=== PATIENT | female | born 1970 | race Two or more races ===

== ENCOUNTER 2024-01-10 08:06 | Outpatient (REF) | payer OTHER, SELFPAY ==
--- NOTE | ~2024-01-10 | MR_ITS ---
EXAMINATION: MRI OF THE BRAIN WITH AND WITHOUT IV CONTRAST INDICATION: Paroxysmal hemicranial. COMPARISON: Brain MRI April 08, 2015. TECHNIQUE: Multiplanar multisequence MR imaging of the brain was obtained without and following the administration of 0.5 mL of Gadavist without complication. FINDINGS: There is no pathologic intracranial enhancement. There is mild chronic microangiopathy. There is no hydrocephalus, extra-axial surface collection, or herniation. The major flow voids at the skull base are preserved. There is no acute infarct on diffusion-weighted imaging. There is no intracranial hemorrhage on the gradient recalled echo acquisition. The midline structures are normal. The cerebellar tonsils are normally positioned. The cerebellum and brainstem are normal. The craniocervical junction is normal. Osseous marrow signal intensity is homogenous. The visualized soft tissues are unremarkable. MR/MR head/brain wo/w con IMPRESSION: No acute intracranial findings. No pathologic enhancement intracranially. There is mild chronic microangiopathy. Electronically signed by: Matty Irvin MD 01/26/2024 01:23 PM EDT
[2024-01-10] MEDS: gadobutroL 7.5 ML VIAL IVPUSH (09:03)
== END 2024-01-10 08:07 | disposition home or self-care (01) ==
LOC: HO.MRI 08:06
PROVIDERS: Visit Provider Psychiatry & Neurology Neurology
DX: G44.039 Episodic paroxysmal hemicrania, not intractable (principal)
CPT/HCPCS: 70553; A9585